=== PATIENT | male | born 1975 ===

== ENCOUNTER 2018-10-07 11:00 | Outpatient (CLI) | payer OTHER | END 2018-10-07 11:01 | disposition home or self-care (01) | LOC: SLR 11:00 | PROVIDERS: ATTEND Specialist | DX: G47.33 Obstructive sleep apnea (adult) (pediatric) (principal); R40.0 Somnolence; R06.83 Snoring; E66.9 Obesity, unspecified | CPT/HCPCS: G0399 ==